=== PATIENT | female | born 1975 | race Caucasian/White ===

== ENCOUNTER → 2016-06-22 | Day surgery (SDC) | payer OTHER ==
[~2016-06-22] MED LIST: ALBUTEROL17 GM INH; AZITHROMYCIN250 MG PO; BIOTIN10000 MC1 PO; CEPHALEXIN500 M1 PO; CYANOCOBALAM1000 MCG PO; DOXYCYCLINE HY100 M1 PO; ESCITALOPRAM OX10 MG PO; FLEXERIL10 M1 PO; KEFLEX500 MG PO; LORTAB 5/500 TA1 TA1 PO; LORTAB 7.5-5001 TAB PO; MEDROL PO; METOPROLOL SUCC25 MG PO; MONTELUKAST SOD10 MG PO; MULTIPLE VITAMI1 T13 PO; NAPROSYN500 MG PO; ORUDIS75 M1 PO; PHENERGAN/CODEIN5 ML PO; SUDAFED30 M1 PO; SUPER B COMPLEX1 CAP PO; SYMBICORT INH; TOPAMAX50 MG PO; TRAMADOL HCL50 M1 PO; VIBRAMYCIN100 M1 PO; VICODIN 5/500 T1 TAB PO; ZANTAC150 MG PO; ZITHROMAX1 G/PKT PO; ZYRTEC10 M1 PO; [UNRECOGNIZED DRUG - OTHER] PO
--- NOTE | ~2016-06-22 | OR ---
Unit #: [id number] #: [id number] Patient: TAL MORALEZ [id number] [address] [address] [id number] O MR#: [id number] NAME: TAL MORALEZ ROOM: Date of Procedure: 06/22/2016 Admission Date: 06/22/2016 Surgeon: Raciel Ugalde M.D. : 1975 Attending Physician: Raciel Ugalde M.D. [facility] OPERATIVE REPORT PREOPERATIVE DIAGNOSIS Chronic morbid obesity with body mass index of 39. POSTOPERATIVE DIAGNOSES 1. Chronic morbid obesity with body mass index of 39. 2. Paraesophageal hiatal hernia. PROCEDURES PERFORMED 1. Laparoscopic adjustable gastric band. 2. Laparoscopic paraesophageal hiatal hernia repair. ASSISTANT Vitaliy Payne M.D. ANESTHESIA General endotracheal anesthesia. ESTIMATED BLOOD LOSS Minimal. IV FLUIDS 800 crystalloid. COMPLICATIONS None. INDICATIONS FOR PROCEDURE The patient is a 41-year-old with chronic morbid obesity. DESCRIPTION OF PROCEDURE The patient was taken to the operating room and placed in supine position. General anesthesia was induced. The abdomen was prepped and draped. A 3-cm incision was then made left of the midline. A 10-mm Visiport was then placed intraabdominal under direct vision. The abdomen was insufflated to 15 mmHg with CO2. The patient was then placed in a steep reversed Trendelenburg. General inspection of the abdomen revealed what appeared to be a paraesophageal hernia. This was identified with a defect at the diaphragm using anterior palpation with the instrument. We then made a small incision in the subxiphoid region. A Matt liver retractor was then placed intraabdominal and used to retract the left lobe of the liver upward to further expose the paraesophageal hernia and GE junction. I then placed a 5-mm port in the right upper quadrant, a 10-mm Unit #: [id number] #: [id number] Patient: TAL MORALEZ port in the left upper quadrant, and another 5-mm port in the left lower quadrant. The stomach was retracted medial and downward. Upon retracting the stomach, we took down the paraesophageal ligament, exposing the right and left saadia at the paraesophageal hernia. Any hernia sac was reduced. We then repaired the paraesophageal hernia using interrupted #0 Ethibond sutures in a [id number]-[id number]-jbbdu type fashion. This formed a snug repair to the anterior esophagus. We then retracted the stomach medially and further exposed the angle of His using Bovie electrocautery. The stomach was then retracted laterally. We then took down the hepatogastric ligament with Bovie electrocautery. This exposed the right saadia. Using blunt dissection, I created a retrogastric tunnel from this point to the angle of His. The band was then placed intraabdominal through the 10-mm port site. This was then brought through the retrogastric tunnel in a pars flaccida technique. The band was then closed anteriorly to form a 20-mL to 25-mL anterior gastric pouch. The fundus was then secured to the anterior pouch to prevent movement around the stomach using two interrupted #0 Ethibond sutures. A third suture was then used as a gathering stitch from the lesser curve to the anterior stomach, gathering and imbricating the remaining fundus of the stomach. The tubing was then brought out through the midline 10-mm port site. All ports and the Matt liver retractor were removed under direct vision with no evidence of abdominal hemorrhage. A polypropylene mesh was then secured to the posterior face of the laparoscopic band port. This was secured using #0 Ethibond suture. This was then cut to shape. The port was then connected to the tubing and placed into a subcutaneous pocket just anterior to the rectus sheath. Its position was then confirmed. All tubing was then placed intraabdominal. The wounds were then closed with interrupted 4-0 Vicryl. The patient tolerated the procedure well and was sent to the recovery room in good condition. Dictated by... Stefanie Barfield/elie TD: 06/23/2016 02:41 JOB #: [id number] OPERATIVE REPORT X Raciel Ugalde MD X PROCEDURE OPERATIVE NOTE
--- NOTE | ~2016-06-22 | CR7 ---
[facility] A Service of [facility] & [facility] RADIOLOGY TEXT RESULTS PATIENT: TAL MORALEZ LOCATION: [facility] : [birth year] UNIT #: [id number] AGE: [address]: Raciel Ugalde MD SEX: F ORDER DR: [id number] [facility] [address] [place], [place] [address] [id number] O MR#: [id number] Acc #: [id number] NAME: TAL MORALEZ : 1975 SEX: F STUDY DATE/TIME: 06/22/2016 10:15 UNIT: [facility] ROOM: STUDY DESCRIPTION: CR Abdomen Single AP View Attending Physician: Raciel Ugalde M.D. Ordering Physician: Raciel Ugalde M.D. Primary Care Physician: [facility], [facility]. MEDICAL IMAGING REPORT This report is preliminary unless electronic signature is present EXAM AP abdomen, 06/22/2016 HISTORY Postop laparoscopic band device placement. TECHNIQUE AP radiograph of the upper abdomen was obtained postoperatively. FINDINGS Newly placed laparoscopic band device is in expected position just below the esophagogastric junction making an angle with midline of about 57 degrees. No visible gastric distension. Visualized bowel gas pattern is normal. Dictated by... Gus Caldwell M.D. THIS IS AN ELECTRONICALLY VERIFIED REPORT Gus Caldwell M.D. at 06/22/2016 4:12 PM GREGORY/marcy TD: 06/22/2016 13:05 JOB #: [id number] MEDICAL IMAGING REPORT COPY
== END | disposition home or self-care (01) ==
LOC: CSUR 06:08
DX: E66.01 Morbid (severe) obesity due to excess calories (principal); K44.9 Diaphragmatic hernia without obstruction or gangrene; I10 Essential (primary) hypertension; J40 Bronchitis, not specified as acute or chronic; G43.909 Migraine, unspecified, not intractable, without status migrainosus; Z68.39 Body mass index [BMI] 39.0-39.9, adult; Z85.828 Personal history of other malignant neoplasm of skin; Z86.69 Personal history of other diseases of the nervous system and sense organs; Z88.2 Allergy status to sulfonamides; Z91.040 Latex allergy status; Z90.710 Acquired absence of both cervix and uterus; Z79.899 Other long term (current) drug therapy; Z90.89 Acquired absence of other organs; Z98.890 Other specified postprocedural states
CPT/HCPCS: 74000; C1781; J0330; J0690; J1650; J1885; J2250; J2405; J2710; J3010

== ENCOUNTER 2016-11-06 11:27 | Emergency (ER) | payer OTHER ==
[~2016-11-06] VITALS: Ht 175.3 cm; Wt 106.1 kg
== END 2016-11-06 12:04 | disposition home or self-care (01) ==
LOC: CED 11:27
DX: R11.2 Nausea with vomiting, unspecified (principal); R19.7 Diarrhea, unspecified; K21.9 Gastro-esophageal reflux disease without esophagitis; I10 Essential (primary) hypertension; J45.909 Unspecified asthma, uncomplicated; Z90.89 Acquired absence of other organs; Z90.710 Acquired absence of both cervix and uterus; Z88.2 Allergy status to sulfonamides; Z79.899 Other long term (current) drug therapy
CPT/HCPCS: 99284

== ENCOUNTER 2016-11-28 18:39 | Emergency (ER) | payer OTHER ==
[~2016-11-28] VITALS: Ht 175.3 cm; Wt 104.8 kg
--- NOTE | ~2016-11-28 | EKG ---
PATIENT: TAL MORALEZ UNIT #: [id number] Ventricular Rate: 76 BPM Atrial Rate: 76 BPM P-R Interval: 152 ms QRS Duration: 110 ms Q-T Interval: 416 ms QTC Calculation(Bezet): 468 ms P [place]: 41 degrees Calculated R [place]: -26 degrees Calculated T [place]: -4 degrees Diagnosis Line: Normal sinus rhythm Diagnosis Line: Possible Left atrial enlargement Diagnosis Line: Incomplete right bundle branch block Diagnosis Line: Abnormal ECG Diagnosis Line: When compared with ECG of 10-JUN-2016 10:11, Diagnosis Line: No significant change was found Diagnosis Line: Confirmed by JUAN YOUNG MD ([id number]) on Diagnosis Line: 11/28/2016 9:50:45 PM INTERPRETING MD: PASCUAL
[2016-11-28 19:20] LABS: BASOPHIL% 0.4 % (0-2.5); HEMATOCRIT 41.1 % (35.0-45.0); HEMOGLOBIN 13.9 gm/dL (12.0-16.0); LYMPHOCYTE# 1.2 X10e3 (1.0-3.5); MEAN CELL VOLUME 92.3 FL (83-96); MEAN CORPUSCULAR HEMOGLOBIN 31.1 PG (28-34); MEAN CORPUSCULAR HGB CONC 33.7 g/dL (30-36); MEAN PLATELET VOLUME 8.6 FL (6.5-11.5); MONOCYTE# 0.4 X10e3 (0-1.0); MONOCYTE% 3.6 % (3.0-12.0); NEUTROPHIL# 8.3 X10e3 (1.5-7.1); PLATELET COUNT 249 X10e3 (140-420); RED BLOOD COUNT 4.46 X10e (3.90-5.30); RED CELL DISTRIBUTION WIDTH 13.3 % (11.0-15.5); WHITE BLOOD COUNT 9.8 X10e3 (4.0-10.5)
[2016-11-28 19:26] LABS: DIFF IND NO
[2016-11-28 19:40] LABS: URINE SOURCE CLEAN CATCH
[2016-11-28 19:45] LABS: URINE APPEARANCE CLOUDY; URINE BILIRUBIN NEG (NEG); URINE BLOOD 1+ (NEG); URINE COLOR YELLOW; URINE GLUCOSE NEG (NEG); URINE KETONE 3+ (NEG); URINE LEUKOCYTE ESTERASE NEG (NEG); URINE NITRATE NEG (NEG); URINE PH 5.5 (5-8); URINE PROTEIN TRACE (NEG); URINE SPECIFIC GRAVITY 1.026 (1.003-1.035); URINE UROBILINOGEN 0.2 MG/DL (NEG)
[2016-11-28 19:46] LABS: BILIRUBIN, DIRECT 0.2 mg/dL (0.0-0.2); BILIRUBIN,INDIRECT 0.7 mg/dL (0.0-0.9); BILIRUBIN,TOTAL 0.9 mg/dL (0.2-2.0); BUN/CREATININE RATIO 12.5; CALCIUM SERUM 8.8 mg/dL (8.4-10.2); CREATININE SERUM 0.8 mg/dL (0.6-1.4); POTASSIUM 3.7 mmol/L (3.5-5.1)
[2016-11-28 19:49] LABS: CULTURE INDICATED? YES; URINE BACTERIA AUWI 2+ (NEGATIVE); URINE SQUAMOUS EPITHELIAL CELL MOD /[HPF]
[2016-11-28 20:57] LABS: POC - TROPONIN <0.05 ng/mL (<=0.05)
== END 2016-11-28 21:36 | disposition home or self-care (01) ==
LOC: CED 18:39
DX: I10 Essential (primary) hypertension (principal); J06.9 Acute upper respiratory infection, unspecified; H92.09 Otalgia, unspecified ear; Z79.899 Other long term (current) drug therapy; Z88.2 Allergy status to sulfonamides; Z91.040 Latex allergy status
CPT/HCPCS: 36415; 80048; 80076; 81003; 82553; 84484; 84703; 85025; 87086; 93005; 99284